=== PATIENT | male | born 1995 | race Hispanic/Latino ===

== ENCOUNTER 2022-12-03 00:06 | Emergency (ER) | payer OTHER, SELFPAY ==
[2022-12-03] MEDS ORDERED: KETOROLAC 30 MG/ML INJ ONE (00:40)
[2022-12-03] MEDS ORDERED: ONDANSETRON 4 MG/2 ML VIAL ONE (00:40)
[2022-12-03] MEDS ORDERED: DIPHENHYDRAMINE 50 MG/ML VIAL ONE (00:40)
[2022-12-03] MEDS ORDERED: NA CHLORIDE 0.9% 1,000 ML ONE (00:41)
[2022-12-03] MEDS ORDERED: FAMOTIDINE 20 MG/2 ML VIAL IV ONE (00:41)
[2022-12-03 00:52] LABS: Absolute Lymphocytes (CBC) 1.9 K/uL (0.7-4.9); Hematocrit 38.9 % (39.6-49.0); Lymphocytes % 20.7 % (15.3-44.8); MCV 91.7 fL (80-100); MPV 8.9 fL (7.6-11.3); RBC Red Blood Cell Count 4.24 M/uL (4.33-5.43)
[2022-12-03 01:03] LABS: Albumin 3.9 g/dL (3.4-5.0); Bilirubin Total 0.4 mg/dL (0.2-1.0); Potassium 3.7 mEq/L (3.5-5.1); Protein, Total 7.4 g/dL (6.4-8.2)
--- NOTE | 2022-12-03 01:16 | ER ---
Nurse's Notes [facility] Name: Ray Driver Age: 27 yrs Sex: Male : 1995 Arrival Date: 12/03/2022 Time: 00:06 Bed 5 Private MD: Diagnosis: Upper abdominal pain, unspecified;Nausea with vomiting, unspecified Presentation: 12/03 00:30 Chief complaint: Patient states: having upper abdominal pain and vomiting since 1230 vc1 today. also a rash on face. Coronavirus screen: Vaccine status: Patient reports receiving the 1st dose of the Covid vaccine. [employer] Client denies travel out of the [place] in the last 14 days. At this time, the client does not indicate any symptoms associated with coronavirus-19. Ebola Screen: Patient negative for fever greater than or equal to 101.5 degrees Fahrenheit, and additional compatible Ebola Virus Disease symptoms Patient denies exposure to infectious person. Patient denies travel to an Ebola-affected area in the 21 days before illness onset. No symptoms or risks identified at this time. 00:30 Method Of Arrival: Ambulatory vc1 01:05 Initial Sepsis Screen: Does the patient meet any 2 criteria? No. Patient's initial vc1 sepsis screen is negative. Does the patient have a suspected source of infection? No. Patient's initial sepsis screen is negative. Risk Assessment: Do you want to hurt yourself or someone else? Patient reports no desire to harm self or others. Onset of symptoms was December 02, 2022 at 12:30. 01:05 Acuity: JAK 3 vc1 Triage Assessment: 00:30 General: Appears in no apparent distress. uncomfortable, ill, Behavior is calm, vc1 cooperative, appropriate for age. Pain: Complains of pain in right upper quadrant and left upper quadrant Pain does not radiate. Pain currently is 7 out of 10 on a pain scale. Also complains of nausea, vomiting. EENT: No deficits noted. No signs and/or symptoms were reported regarding the EENT system. Neuro: Level of Consciousness is awake, alert, obeys commands, Oriented to person, place, time, situation, Appropriate for age. Cardiovascular: No deficits noted. Respiratory: Airway is patent Trachea midline Respiratory effort is even, unlabored, Respiratory pattern is regular, symmetrical. GI: Reports upper abdominal pain, nausea, Pain is 7 out of 10 on a pain scale. vomiting. : No deficits noted. No signs and/or symptoms were reported regarding the genitourinary system. : No signs and/or symptoms were reported regarding the genitourinary system. Derm: No deficits noted. No signs and/or symptoms reported regarding the dermatologic system. Musculoskeletal: No deficits noted. No signs and/or symptoms reported regarding the musculoskeletal system. Historical: - Allergies: 00:30 No Known Allergies; vc1 - Home Meds: 00:30 None [Active]; vc1 - PMHx: 00:30 None; vc1 - PSHx: 00:30 None; vc1 - Immunization history:: Client reports receiving the 1st dose of the Covid vaccine. - Social history:: Smoking status: Patient denies any tobacco usage or history of. Screenin:06 [facility] ED Fall Risk Assessment (Adult) History of falling in the last 3 months, vc1 including since admission No falls in past 3 months (0 pts) Confusion or Disorientation No (0 pts) Intoxicated or Sedated No (0 pts) Impaired Gait No (0 pts) Mobility Assist Device Used No (0 pt) Altered Elimination No (0 pt) Score/Fall Risk Level 0 - 2 = Low Risk Oriented to surroundings, Maintained a safe environment, Educated pt \T\ family on fall prevention, incl call for assistance when getting out of bed. Abuse screen: Denies threats or abuse. Nutritional screening: No deficits noted. Tuberculosis screening: No symptoms or risk factors identified. Vital Signs: 00:30 BP 146 / 83; Pulse 61; Resp 18; Temp 98.9; Pulse Ox 100% ; vc1 01:09 Weight 99.79 kg; Height 6 ft. 2 in. ; vc1 01:09 Body Mass Index 28.25 (99.79 kg, 187.96 cm) vc1 ED Course: 00:09 Patient arrived in ED. ag3 00:10 Jade Kapoor FNP-C is [facility]. kb 00:10 Abdirizak Dukes MD is Attending Physician. kb 00:15 Kristin Moreau RN is Primary Nurse. vc1 00:30 Inserted saline lock: 20 gauge in right antecubital area, using aseptic technique. vc1 Blood collected. 00:30 Arm band placed on left wrist. vc1 00:30 Patient has correct armband on for positive identification. Bed in low position. Call vc1 light in reach. Client placed on continuous cardiac and pulse oximetry monitoring. NIBP monitoring applied. 00:41 CBC with Diff Sent. vc1 00:41 CMP Sent. vc1 00:41 Lipase Sent. vc1 01:05 Triage completed. vc1 01:58 No provider procedures requiring assistance completed. IV discontinued, intact, vc1 bleeding controlled, No redness/swelling at site. Pressure dressing applied. Administered Medications: 00:40 Drug: Famotidine IVP 20 mg Route: IVP; Site: right antecubital; vc1 01:58 Follow up: Response: No adverse reaction; Marked relief of symptoms vc1 00:40 Drug: diphenhydrAMINE IVP 12.5 mg Route: IVP; Site: right antecubital; vc1 01:58 Follow up: Response: No adverse reaction; Marked relief of symptoms vc1 00:41 Drug: NS 0.9% IV 1000 ml Route: IV; Rate: 1 bolus; Site: right antecubital; vc1 01:58 Follow up: IV Status: Completed infusion; IV Intake: 1000ml vc1 00:41 Drug: TORadol - Ketorolac IVP 15 mg Route: IVP; Site: right antecubital; vc1 01:59 Follow up: Response: No adverse reaction; Marked relief of symptoms vc1 00:41 Drug: Ondansetron IVP 4 mg Route: IVP; Site: right antecubital; vc1 01:59 Follow up: Response: No adverse reaction; Marked relief of symptoms vc1 Medication: 01:08 VIS not applicable for this client. vc1 Intake: 01:58 IV: 1000ml; Total: 1000ml. vc1 Outcome: 01:16 Discharge ordered by MD. seaman 01:58 Discharged to home ambulatory. vc1 01:58 Condition: good 01:58 Discharge instructions given to patient, Instructed on discharge instructions, follow up and referral plans. medication usage, Demonstrated understanding of instructions, follow-up care, medications, Prescriptions given X 2. 01:59 Patient left the ED. vc1 Signatures: Jade Kapoor, CHRISTIANNEC DARION-[place]ma Meeks ag3 Kristin Moreau RN RN vc1
--- NOTE | 2022-12-03 01:17 | EDPHYS ---
Physician Documentation [facility] Name: Ray Driver Age: 27 yrs Sex: Male : 1995 Arrival Date: 12/03/2022 Time: 00:06 Bed 5 Private MD: ED Physician Abdirizak Dukes HPI: 12/03 00:28 This 27 yrs old Male presents to ER via Unassigned with complaints of kb Vomiting, Abdominal Pain. 00:28 The patient presents to the emergency department with nausea, vomiting, abdominal pain. kb Onset: The symptoms/episode began/occurred today. Possible causes: unknown. The symptoms are aggravated by food , The symptoms are alleviated by nothing. Associated signs and symptoms: Pertinent positives: abdominal pain, nausea, vomiting, Pertinent negatives: constipation, diarrhea, fever. Severity of symptoms: At their worst the symptoms were moderate in the emergency department the symptoms are unchanged. The patient has not experienced similar symptoms in the past. The patient has not recently seen a physician. Pt reports upper abd pain, nausea and vomiting that started after lunch . Historical: - Allergies: 00:30 No Known Allergies; vc1 - Home Meds: 00:30 None [Active]; vc1 - PMHx: 00:30 None; vc1 - PSHx: 00:30 None; vc1 - Immunization history:: Client reports receiving the 1st dose of the Covid vaccine. - Social history:: Smoking status: Patient denies any tobacco usage or history of. ROS: 00:29 Constitutional: Negative for fever, chills, and weight loss. kb 00:29 Abdomen/GI: Positive for abdominal pain, nausea and vomiting, Negative for diarrhea, constipation. 00:29 All other systems are negative. Exam: 00:29 Constitutional: This is a well developed, well nourished patient who is awake, alert, kb and in no acute distress. Head/Face: Normocephalic, atraumatic. ENT: Moist Mucous membranes Cardiovascular: Regular rate and rhythm with a normal S1 and S2. No gallops, murmurs, or rubs. No pulse deficits. Respiratory: Respirations even and unlabored. No increased work of breathing. Talking in full sentences Abdomen/GI: Soft, non-tender. No distention Skin: Warm, dry with normal turgor. Normal color. MS/ Extremity: Pulses equal, no cyanosis. Neurovascular intact. Full, normal range of motion. Neuro: Awake and alert, GCS 15, oriented to person, place, time, and situation. Moves all extremities. Normal gait. Vital Signs: 00:30 BP 146 / 83; Pulse 61; Resp 18; Temp 98.9; Pulse Ox 100% ; vc1 01:09 Weight 99.79 kg; Height 6 ft. 2 in. ; vc1 01:09 Body Mass Index 28.25 (99.79 kg, 187.96 cm) vc1 MDM: 00:11 Patient medically screened. kb 00:29 Differential diagnosis: Nonspecific abd pain, gastritis, cholecystitis, pancreatitis, kb viral gastroenteritis. Data reviewed: vital signs, nurses notes. 01:14 Test considered but Not performed: Ultrasound US considered, but pt has no abd kb tenderness, afebrile and nontoxic in appearance. . CT: CT considered but pt has no abd tenderness, afebrile and nontoxic in appearance. Labs reassuring. Counseling: I had a detailed discussion with the patient and/or guardian regarding: the historical points, exam findings, and any diagnostic results supporting the discharge/admit diagnosis, lab results, the need for outpatient follow up, a family practitioner, to return to the emergency department if symptoms worsen or persist or if there are any questions or concerns that arise at home. 12/03 00:15 Order name: CBC with Diff; Complete Time: 00:57 kb 12/03 00:15 Order name: CMP; Complete Time: 01:06 kb 12/03 00:15 Order name: Lipase; Complete Time: 01:06 kb 12/03 00:15 Order name: IV Saline Lock; Complete Time: 00:41 kb 12/03 00:15 Order name: Labs collected and sent; Complete Time: 00:41 kb 12/03 01:06 Order name: PO challenge; Complete Time: 01:57 kb Administered Medications: 00:40 Drug: Famotidine IVP 20 mg Route: IVP; Site: right antecubital; vc1 01:58 Follow up: Response: No adverse reaction; Marked relief of symptoms vc1 00:40 Drug: diphenhydrAMINE IVP 12.5 mg Route: IVP; Site: right antecubital; vc1 01:58 Follow up: Response: No adverse reaction; Marked relief of symptoms vc1 00:41 Drug: NS 0.9% IV 1000 ml Route: IV; Rate: 1 bolus; Site: right antecubital; vc1 01:58 Follow up: IV Status: Completed infusion; IV Intake: 1000ml vc1 00:41 Drug: TORadol - Ketorolac IVP 15 mg Route: IVP; Site: right antecubital; vc1 01:59 Follow up: Response: No adverse reaction; Marked relief of symptoms vc1 00:41 Drug: Ondansetron IVP 4 mg Route: IVP; Site: right antecubital; vc1 01:59 Follow up: Response: No adverse reaction; Marked relief of symptoms vc1 Disposition Summary: 12/03/22 01:16 Discharge Ordered Location: Home kb Condition: Stable kb Diagnosis - Upper abdominal pain, unspecified kb - Nausea with vomiting, unspecified kb Followup: kb - With: Emergency Department - When: As needed - Reason: Worsening of condition Followup: kb - With: Private Physician - When: 2 - 3 days - Reason: Recheck today's complaints, Continuance of care, Re-evaluation by your physician Discharge Instructions: - Discharge Summary Sheet kb - Nausea and Vomiting, Adult, [id number] kb - Abdominal Pain, Adult, [id number] kb Forms: - Medication Reconciliation Form kb - Thank You Letter kb - Antibiotic Education kb - Prescription Opioid Use kb Prescriptions: - ondansetron 4 mg Oral Tablet,disintegrating - take 1 tablet by ORAL route every 8 hours As needed; 12 tablet; Refills: 0, kb Product Selection Permitted - Pepcid 20 mg Oral Tablet - take 1 tablet by ORAL route every 12 hours for 10 days; 20 tablet; Refills: 0, kb Product Selection Permitted Signatures: Dispatcher [employer] Jade Carson, IRON SETTER-C IRON SETTER-Kristin Pearce, RN RN vc1
[2022-12-03 02:13] VITALS: BP 146/83; TEMP 98.9; O2SAT 100
== END 2022-12-03 01:59 | disposition home or self-care (01) ==
LOC: ER 00:06
DX: R10.10 Upper abdominal pain, unspecified (principal); R11.2 Nausea with vomiting, unspecified
CPT/HCPCS: 36415; 80053; 83690; 85025; 96361; 96374; 96375; 99284; J1200; J2405; J7030